=== PATIENT | female | born 1990 | race Caucasian/White ===

== ENCOUNTER 2017-07-11 14:46 | Inpatient (IN) | payer OTHER ==
[~2017-07-11] VITALS: Ht 172.7 cm; Wt 85.7 kg
[~2017-07-11 14:46] MED LIST: IRON18 MG PO; PRENATAL 19 TA1 EACH PO
== END 2017-07-14 17:18 | disposition left against medical advice (07) | DRG 782 ==
LOC: LDR 14:46
PROC: 4A1HXCZ Monitoring of Products of Conception, Cardiac Rate, External Approach (ICD-10-PCS; principal; 2017-07-11)
PROC: BY4FZZZ Ultrasonography of Third Trimester, Single Fetus (ICD-10-PCS; 2017-07-12)
PROC: BY4FZZZ Ultrasonography of Third Trimester, Single Fetus (ICD-10-PCS; 2017-07-14)
DX: O41.03X0 Oligohydramnios, third trimester, not applicable or unspecified (principal); Z3A.33 33 weeks gestation of pregnancy

== ENCOUNTER 2017-07-21 09:06 | Outpatient (CLI) | payer OTHER | END 2017-07-21 09:56 | disposition home or self-care (01) | LOC: NST 09:06 | DX: Z34.03 Encounter for supervision of normal first pregnancy, third trimester (principal) ==

== ENCOUNTER 2017-07-23 09:24 | Outpatient (CLI) | payer OTHER | END 2017-07-23 10:57 | disposition home or self-care (01) | LOC: NST 09:24 | DX: Z34.03 Encounter for supervision of normal first pregnancy, third trimester (principal) ==

== ENCOUNTER 2017-07-26 09:15 | Inpatient (IN) | payer OTHER ==
[~2017-07-26] VITALS: Ht 172.7 cm; Wt 2.3 kg
[2017-07-28] MEDS ORDERED: MAXFE CAPLET1 EACH PO (14:03)
== END 2017-08-03 12:12 | disposition home or self-care (01) | DRG 766 ==
LOC: OB/GYN 09:15 → O/R 07-31 06:05 → OB/GYN 07-31 09:15
PROVIDERS: Obstetrics & Gynecology
PROC: 4A1HXCZ Monitoring of Products of Conception, Cardiac Rate, External Approach (ICD-10-PCS; 2017-07-31)
PROC: 4A033R1 Measurement of Arterial Saturation, Peripheral, Percutaneous Approach (ICD-10-PCS; 2017-07-31)
PROC: 10D00Z1 Extraction of Products of Conception, Low, Open Approach (ICD-10-PCS; principal; 2017-07-31 11:15)
DX: O41.03X0 Oligohydramnios, third trimester, not applicable or unspecified (principal); Z3A.36 36 weeks gestation of pregnancy; Z37.0 Single live birth